=== PATIENT | male | born 1935 | race Caucasian/White ===

== ENCOUNTER 2019-02-01 10:03 | Emergency (ER) | payer BC, MEDICARE, OTHER ==
[~2019-02-01] VITALS: Ht 175.3 cm; Wt 91.0 kg
[~2019-02-01 10:03] MED LIST: ALBU8.5H8 IH; AMIO200T54 PO; AMLO10TA PO; APIX5TAB3 PO; ATOR20TA PO; CARV25TA2 PO; CLOT15CR73 TP; DEXL60CA3 PO; FLO0.4C PO; ISOS20TA6 PO; LIDO700A5 TP; LOSA100T3 PO; MESA800T PO; METF500T PO; MOME13HF2 INH; RANI-648 PO
[2019-02-01] MEDS ORDERED: aspirin 81mg tab.chew PO ONE (10:10)
--- NOTE | 2019-02-01 10:11 | NUR ---
MAGNET PLACED ON PATIENT DEFIBRILLATOR AT DR SCHWARZ REQUEST AND TAPED IN PLACE TO PREVENT FURTHER DEFIBRILLATION.
[2019-02-01] MEDS ORDERED: amiodarone 50MG/ML inj IV ONE (10:15)
[2019-02-01 10:29] LABS: BASOPHILS # (AUTO) 0.1 X10'3 (0-0.2); BASOPHILS % (AUTO) 0.8 % (0-1); EOSINOPHILS # (AUTO) 0.2 X10'3 (0-0.9); EOSINOPHILS % (AUTO) 3.1 % (0-6); HEMATOCRIT 41.6 % (42.0-52.0); HEMOGLOBIN 13.8 g/dl (14.0-17.9); LYMPHOCYTES # (AUTO) 1.3 X10'3 (1.1-4.8); LYMPHOCYTES % (AUTO) 18.7 % (21-51); MEAN CORPUSCULAR HEMOGLOBIN 30.9 PG (27.0-31.0); MEAN CORPUSCULAR HGB CONC 33.2 g/dL (33.0-36.5); MEAN CORPUSCULAR VOLUME 93.1 FL (78-98); MEAN PLATELET VOLUME 8.4 FL (7.4-10.4); MONOCYTES # (AUTO) 0.6 X10'3 (0-0.9); MONOCYTES % (AUTO) 8.5 % (2-12); NEUTROPHILS # (AUTO) 4.7 X10'3 (1.8-7.7); NEUTROPHILS % (AUTO) 68.9 % (42-75); PLATELET COUNT 134 X10'3 (140-440); RED BLOOD COUNT 4.47 X10'6 (4.70-6.10); RED CELL DISTRIBUTION WIDTH 14.1 % (11.5-14.5); WHITE BLOOD COUNT 6.8 X10'3 (4.5-11.0)
[2019-02-01] MEDS ORDERED: amiodarone/D5 360MG/200ML BAG 200 ML IV SCH (10:29)
[2019-02-01 10:56] LABS: ALBUMIN 3.8 G/DL (3.4-5.0); ALKALINE PHOSPHATASE 64 IU/L (46-116); ANION GAP 12 (8-16); ASPARTATE AMINO TRANSFERASE 23 U/L (10-37); BILIRUBIN,TOTAL 0.4 MG/DL (0.1-1.0); BLOOD UREA NITROGEN 23 MG/DL (7-18); BUN/CREATININE RATIO 20.4 (5.4-32.0); CALCIUM 9.2 MG/DL (8.5-10.1); CHLORIDE 104 MMOL/L (99-107); CREATININE 1.13 MG/DL (0.60-1.10); GLUCOSE 155 MG/DL (70-104); POTASSIUM 4.6 MMOL/L (3.5-5.1); SODIUM 140 MMOL/L (135-145); TOTAL CARBON DIOXIDE 24.3 MMOL/L (24-32); TOTAL PROTEIN 7.5 G/DL (6.4-8.2); eGFR 62 ML/MIN
[2019-02-01 11:23] VITALS: BP 149/63
[2019-02-01 11:28] LABS: ALANINE AMINOTRANSFERASE 22 U/L (12-78)
== END 2019-02-01 12:55 | disposition home or self-care (01) ==
LOC: ER 10:03
DX: T82.198A Other mechanical complication of other cardiac electronic device, initial encounter (principal); R53.1 Weakness; I48.91 Unspecified atrial fibrillation; I25.10 Atherosclerotic heart disease of native coronary artery without angina pectoris; I25.2 Old myocardial infarction; Z88.0 Allergy status to penicillin; Z79.84 Long term (current) use of oral hypoglycemic drugs; Z79.899 Other long term (current) drug therapy; Z95.1 Presence of aortocoronary bypass graft; Z95.0 Presence of cardiac pacemaker; Y83.8 Other surgical procedures as the cause of abnormal reaction of the patient, or of later complication, without mention of misadventure at the time of the procedure; Y92.89 Other specified places as the place of occurrence of the external cause
CPT/HCPCS: 36415; 71045; 80053; 83735; 83880; 84484; 85025; 93005; 96365; 96366; 99284; J0282

== ENCOUNTER 2019-03-08 14:39 | Day surgery (SDC) | payer OTHER ==
[~2019-03-08] VITALS: Ht 175.3 cm; Wt 87.2 kg
[2019-03-08] MEDS ORDERED: cefazolin/dext.iso 2gm/50ml 50 ML IV ONE (15:15)
[2019-03-08] MEDS ORDERED: normal saline 1,000 ML IV SCH (15:15)
[2019-03-08] MEDS ORDERED: CARB1TAB44 PO (15:42)
[2019-03-08] MEDS ORDERED: APIX5TAB3 PO (15:42)
[2019-03-08] MEDS ORDERED: MESA400C2 PO (15:42)
[2019-03-08] MEDS ORDERED: MULT-955 PO (15:42)
[2019-03-08] MEDS ORDERED: HYDR25TA4 PO (15:42)
[2019-03-08] MEDS ORDERED: ISOS30TA6 PO (15:42)
[2019-03-08] MEDS ORDERED: UBID100C16 PO (15:42)
[2019-03-08] MEDS ORDERED: DIGO250T77 PO (15:42)
[2019-03-08 15:56] VITALS: BP 166/93
[2019-03-08] MEDS ORDERED: fentaNYL/PF 50MCG/1 ML 2ML syringe ONE (16:03)
[2019-03-08] MEDS ORDERED: midazolam 2 mg/2 ml injection ONE (16:03)
[2019-03-08] MEDS ORDERED: LIDOcaine 1% W/epiNEPHrine 1:100,000 20ml vial ONE (16:04)
[2019-03-08] MEDS ORDERED: clindamycin 600mg/D5W 50ml 50 ML IV ONE (17:34)
[2019-03-08] MEDS ORDERED: clindamycin phosphate 150mg/ml inj. ONE (17:34)
[2019-03-08 18:56] VITALS: BP 149/80
[2019-03-08 19:11] VITALS: BP 156/80
[2019-03-08 19:26] VITALS: BP 150/74
[2019-03-08 19:41] VITALS: BP 140/75
[2019-03-08 20:10] VITALS: BP 130/63
== END 2019-03-08 20:15 | disposition home or self-care (01) ==
LOC: SSTAY O 14:39
PROVIDERS: ATTEND Internal Medicine Interventional Cardiology
DX: T82.120A Displacement of cardiac electrode, initial encounter (principal); E11.9 Type 2 diabetes mellitus without complications; I25.10 Atherosclerotic heart disease of native coronary artery without angina pectoris; I48.91 Unspecified atrial fibrillation; I11.0 Hypertensive heart disease with heart failure; I50.9 Heart failure, unspecified; E78.5 Hyperlipidemia, unspecified; Z88.0 Allergy status to penicillin; Z88.8 Allergy status to other drugs, medicaments and biological substances; Z79.899 Other long term (current) drug therapy; Y83.8 Other surgical procedures as the cause of abnormal reaction of the patient, or of later complication, without mention of misadventure at the time of the procedure; Y92.89 Other specified places as the place of occurrence of the external cause
CPT/HCPCS: 33216; 33264; 82948; 93005; 99152; 99153; C1769; C1777; C1882; J2250; J3010; J3490; J7030; 33215; 33229; A4565; A4620; A6258; A6449

== ENCOUNTER 2019-06-05 07:58 | Observation (INO) | payer OTHER ==
[~2019-06-05] VITALS: Ht 175.3 cm; Wt 88.5 kg
[~2019-06-05 07:58] MED LIST changes: -ALBU8.5H8 IH; -AMIO200T54 PO; +AMIO200T62 PO; -AMLO10TA PO; +CARB1TAB44 PO; -CLOT15CR73 TP; +DIGO250T2 PO; -FLO0.4C PO; +HYDR25TA4 PO; -ISOS20TA6 PO; +ISOS30TA6 PO; -LIDO700A5 TP; +MESA400C2 PO; -MESA800T PO; +MULT-955 PO; -RANI-648 PO; +UBID100C16 PO
[2019-06-05] MEDS ORDERED: aspirin 81mg tab.chew PO ONE (08:10)
[2019-06-05 08:31] LABS: BASOPHILS # (AUTO) 0.1 X10'3 (0-0.2); BASOPHILS % (AUTO) 1.2 % (0-1); EOSINOPHILS # (AUTO) 0.4 X10'3 (0-0.9); EOSINOPHILS % (AUTO) 6.2 % (0-6); HEMATOCRIT 43.3 % (42.0-52.0); HEMOGLOBIN 14.6 g/dl (14.0-17.9); LYMPHOCYTES # (AUTO) 1.2 X10'3 (1.1-4.8); LYMPHOCYTES % (AUTO) 19.4 % (21-51); MEAN CORPUSCULAR HEMOGLOBIN 31.4 PG (27.0-31.0); MEAN CORPUSCULAR HGB CONC 33.8 g/dL (33.0-36.5); MEAN PLATELET VOLUME 8.3 FL (7.4-10.4); MONOCYTES # (AUTO) 0.5 X10'3 (0-0.9); MONOCYTES % (AUTO) 7.6 % (2-12); NEUTROPHILS % (AUTO) 65.6 % (42-75); PLATELET COUNT 126 X10'3 (140-440); RED BLOOD COUNT 4.65 X10'6 (4.70-6.10); RED CELL DISTRIBUTION WIDTH 13.6 % (11.5-14.5); WHITE BLOOD COUNT 6.1 X10'3 (4.5-11.0)
[2019-06-05 08:40] LABS: PARTIAL THROMBOPLASTIN TIME 29 SECONDS (22-32)
[2019-06-05] MEDS ORDERED: normal saline 1000ml 1,000 ML IV ONE (08:40)
[2019-06-05 08:47] LABS: ALANINE AMINOTRANSFERASE 21 U/L (12-78); ALBUMIN 3.8 G/DL (3.4-5.0); ALKALINE PHOSPHATASE 67 IU/L (46-116); ANION GAP 10 (8-16); ASPARTATE AMINO TRANSFERASE 20 U/L (10-37); BILIRUBIN,TOTAL 0.5 MG/DL (0.1-1.0); BLOOD UREA NITROGEN 25 MG/DL (7-18); BUN/CREATININE RATIO 22.9 (5.4-32.0); CALCIUM 9.1 MG/DL (8.5-10.1); CHLORIDE 104 MMOL/L (99-107); CREATININE 1.09 MG/DL (0.60-1.10); GLUCOSE 126 MG/DL (70-104); POTASSIUM 3.9 MMOL/L (3.5-5.1); SODIUM 141 MMOL/L (135-145); TOTAL CARBON DIOXIDE 27.3 MMOL/L (24-32); TOTAL PROTEIN 7.5 G/DL (6.4-8.2); eGFR 64 ML/MIN
[2019-06-05] MEDS ORDERED: magnesium 4gm in 100ml NS 100 ML IV PRN (10:45)
[2019-06-05] MEDS ORDERED: magnesium hydroxide 30ml (MOM) UD suspension PO PRN (10:45)
[2019-06-05] MEDS ORDERED: nitroGLYCERIN 0.4mg SUBLingual tab SL PRN ×2 (10:45→17:45)
[2019-06-05] MEDS ORDERED: potassium Cl 20 mEq SR tablet PO PRN ×2 (10:45)
[2019-06-05] MEDS ORDERED: acetaminophen 325mg tablet PO PRN ×2 (10:45)
[2019-06-05] MEDS ORDERED: magnesium Cl slow-release 64mg tablet PO PRN (10:45)
[2019-06-05] MEDS ORDERED: mag hydrox/Alum hydrox/simeth 30ml oral suspension PO PRN (10:45)
[2019-06-05] MEDS ORDERED: ondansetron/PF 4mg/2ml inj IV PRN (10:45)
[2019-06-05] MEDS ORDERED: magnesium 2GM in 50ml NS 50 ML IV PRN (10:45)
[2019-06-05] MEDS ORDERED: potassium CL 10mEq/100ml bag 100 ML IV PRN ×2 (10:45)
[2019-06-05] MEDS ORDERED: APIX5TAB3 PO (11:01)
[2019-06-05 11:09] LABS: CLARITY,URINE CLEAR (Clear); COLOR,URINE STRAW (Yellow); GLUCOSE, URINE NEGATIVE (Neg); KETONES,URINE NEGATIVE (Neg); LEUKOCYTE ESTERASE ,URINE NEGATIVE (Neg); NITRITES, URINE NEGATIVE (Neg); OCCULT BLOOD,URINE NEGATIVE (Neg); PROTEIN,URINE NEGATIVE (Neg); UROBILINOGEN,URINE 0.2 E.U/dL (0.2-1.0)
[2019-06-05 11:10] LABS: UA COLLECTION TYPE URINAL
--- NOTE | 2019-06-05 11:34 | NUR ---
RECEIVED REPORT FROM ROQUE ROTHMAN IN ER
[2019-06-05 11:48] VITALS: BP 169/82
[2019-06-05 18:00] VITALS: BP_SYST 128; BP_SYST 178; BP_DIAS 59; BP_DIAS 79
--- NOTE | 2019-06-05 18:15 | NUR ---
Problems reprioritized. Patient report given, questions answered & plan of care reviewed with ROQUE GALVEZ.
[2019-06-05] MEDS: carVEDilol 12.5mg tablet PO SCH (19:14)
[2019-06-05] MEDS: MESALAMINE 400 MG PO SCH (20:00)
[2019-06-05] MEDS: K and/or MAG REPLACEMENT MC SCH (20:00)
[2019-06-05] MEDS ORDERED: mesalamine 400mg delayed-release capsule PO SCH (20:00)
[2019-06-05] MEDS ORDERED: atorvastatin 20mg tablet PO SCH (21:00)
[2019-06-06] VITALS: BP 136/55
--- NOTE | 2019-06-06 00:09 | NUR ---
This set of vitals are correct. The other 200 vitals are on the wrong patient Addendum: 06/06/19 at 0009 by [place] Galvan RN Amended: Links added.
[2019-06-06 05:34] LABS: BASOPHILS # (AUTO) 0.1 X10'3 (0-0.2); BASOPHILS % (AUTO) 0.9 % (0-1); EOSINOPHILS # (AUTO) 0.4 X10'3 (0-0.9); EOSINOPHILS % (AUTO) 5.7 % (0-6); HEMATOCRIT 40.4 % (42.0-52.0); HEMOGLOBIN 13.9 g/dl (14.0-17.9); LYMPHOCYTES # (AUTO) 1.8 X10'3 (1.1-4.8); LYMPHOCYTES % (AUTO) 26.3 % (21-51); MEAN CORPUSCULAR HEMOGLOBIN 31.7 PG (27.0-31.0); MEAN CORPUSCULAR HGB CONC 34.3 g/dL (33.0-36.5); MEAN CORPUSCULAR VOLUME 92.2 FL (78-98); MEAN PLATELET VOLUME 8.6 FL (7.4-10.4); MONOCYTES # (AUTO) 0.6 X10'3 (0-0.9); MONOCYTES % (AUTO) 9.1 % (2-12); NEUTROPHILS # (AUTO) 3.9 X10'3 (1.8-7.7); PLATELET COUNT 113 X10'3 (140-440); RED BLOOD COUNT 4.38 X10'6 (4.70-6.10); RED CELL DISTRIBUTION WIDTH 13.6 % (11.5-14.5); WHITE BLOOD COUNT 6.8 X10'3 (4.5-11.0)
[2019-06-06 05:52] LABS: ALBUMIN 3.5 G/DL (3.4-5.0); ANION GAP 9 (8-16); BLOOD UREA NITROGEN 22 MG/DL (7-18); CHLORIDE 106 MMOL/L (99-107); CREATININE 1.05 MG/DL (0.60-1.10); GLUCOSE 103 MG/DL (70-104); MAGNESIUM 2.1 MG/DL (1.5-2.4); POTASSIUM 3.7 MMOL/L (3.5-5.1); SODIUM 141 MMOL/L (135-145); TOTAL CARBON DIOXIDE 26.4 MMOL/L (24-32); eGFR 67 ML/MIN
--- NOTE | 2019-06-06 06:14 | NUR ---
Problems reprioritized. Patient report given, questions answered & plan of care reviewed with ROQUE Ge.
--- NOTE | 2019-06-06 06:30 | NUR ---
Patient in room [facility]. I have received report from LEONOR NEVAREZ and had the opportunity to ask questions and assume patient care.
[2019-06-06 07:04] VITALS: BP 157/69
[2019-06-06] MEDS: carVEDilol 12.5mg tablet PO SCH (07:40)
[2019-06-06] MEDS: MESALAMINE 400 MG PO SCH (08:00)
[2019-06-06] MEDS ORDERED: losartan 50mg tablet PO SCH (08:00)
[2019-06-06] MEDS ORDERED: HYDROchlorothiazide 25mg tablet PO SCH (08:00)
[2019-06-06] MEDS ORDERED: apixaban 5mg tablet PO SCH (08:00)
[2019-06-06] MEDS ORDERED: non-formulary drug (Ubidecarenone (Coq-10) 100 MG) PO SCH (08:00)
[2019-06-06] MEDS ORDERED: digoxin 250mcg (0.25mg) tablet PO SCH (08:00)
[2019-06-06] MEDS ORDERED: isosorbide mononitrate 30mg tab.SR.24H PO SCH (08:00)
[2019-06-06] MEDS ORDERED: carbidoba-levodopa 25-100mg tablet PO SCH (08:00)
[2019-06-06] MEDS ORDERED: multivitamins, therapeutics tablet PO SCH (08:00)
[2019-06-06] MEDS: K and/or MAG REPLACEMENT MC SCH (08:00)
[2019-06-06 11:39] VITALS: BP 130/66
--- NOTE | 2019-06-06 12:51 | NUR ---
Patient discharged home today. Patient was educated that physician followed up with thermal spray operator, patient was encouraged to keep good nutrition and and exercise regime. Patient IV taken out at the time of discharge, minimal bleeding noted and canula was whole and intact upon removal. Patient did not get any new medications at discharge. Patient was transported down to the [facility] via wheel chair and was then transported home via private vehicle. Patient left with all of his belongings.
== END 2019-06-06 12:30 | disposition home or self-care (01) ==
LOC: ER 07:58 → ED HOLD 10:43 → SUR 3N 11:49
PROVIDERS: ADMIT Family Medicine; ATTEND Family Medicine
DX: I25.110 Atherosclerotic heart disease of native coronary artery with unstable angina pectoris (principal); I48.91 Unspecified atrial fibrillation; E11.9 Type 2 diabetes mellitus without complications; R42 Dizziness and giddiness; H53.8 Other visual disturbances; Z95.0 Presence of cardiac pacemaker; Z95.1 Presence of aortocoronary bypass graft; Z79.01 Long term (current) use of anticoagulants; Z79.84 Long term (current) use of oral hypoglycemic drugs; Z79.899 Other long term (current) drug therapy; Z88.0 Allergy status to penicillin
CPT/HCPCS: 36415; 71045; 80048; 80053; 81003; 82948; 83735; 84484; 85025; 85610; 85730; 87081; 93005; 93306; 96360; 99284; G0378; J7030

== ENCOUNTER 2020-03-27 15:55 | Outpatient (CLI) | payer MEDICARE ==
[~2020-03-27 15:55] MED LIST changes: -AMIO200T62 PO; -DEXL60CA3 PO; -MOME13HF2 INH
[2020-03-27] MEDS ORDERED: iohexol 300mg/ml 100ml inj. ONE (17:05)
[2020-03-27] MEDS ORDERED: MESSAGE TO NURSING PO SCH (17:15)
== END 2020-03-27 23:59 | disposition home or self-care (01) ==
LOC: 64 CT 15:55
PROVIDERS: ATTEND Family Medicine
DX: R90.82 White matter disease, unspecified (principal); G93.89 Other specified disorders of brain
CPT/HCPCS: 70470; Q9967